=== PATIENT | male | born 1990 | race Caucasian/White ===

== ENCOUNTER 2016-05-02 03:53 | Emergency (ER) | payer BC ==
--- NOTE | 2016-05-02 04:56 | EDPHY ---
H & P Stated Complaint: right ankle injury Time Seen by Provider: 05/02/16 04:27 HPI/ROS: Chief complaint: Left foot and ankle pain HPI: 25-year-old male with skateboarding yesterday when he got his foot caught when he was inverted. [place] a pulling in the mid foot and ankle. Has been unable to weight bear since secondary to pain. Has not noted significant swelling. Not recall any prior injuries to that ankle. He has had vein grafting from that site for reconstruction of his right wrist. No numbness or tingling. Is coming in this morning because he is unable to sleep secondary to the pain. Is denying any other injuries at this time. ROS: 10 point Review of Systems is negative except as noted in the HPI. Past medical history: Right wrist vascular reconstruction secondary to skateboarding injury in the past with vein grafting Medications: None Allergies: None Physical exam: General: Awake, alert, no acute distress Right knee: Nontender, full range of motion of pain, right ankle, nontender, some decreased range of motion secondary to the mid foot pain, Right foot: He has tenderness in his central midfoot. There is no swelling. There is no erythema. He has old surgical scars which are well-healed. He has full range of motion of his toes. Sensations intact in all dermatomes. Cap refills less than 2 seconds. He has 2+ DP and PT pulses. Skin: No rash - Personal History Current Tetanus Diphtheria and Acellular Pertussis (TDAP): Unsure - Medical/Surgical History Hx Asthma: No Hx Chronic Respiratory Disease: No Hx Diabetes: No Hx Cardiac Disease: No Hx Renal Disease: No Hx Cirrhosis: No Hx Alcoholism: No Hx HIV/AIDS: No Hx Splenectomy or Spleen Trauma: No - Social History Smoking Status: Never smoked Constitutional: Initial Vital Signs Temperature (C) 36.5 C 05/02/16 03:58 Heart Rate 100 05/02/16 03:58 Respiratory Rate 20 05/02/16 03:58 Blood Pressure 157/103 H 05/02/16 03:58 O2 Sat (%) 95 05/02/16 03:58 O2 Delivery Mode Room Air Allergies/Adverse Reactions: No Known Allergies Allergy (Unverified 05/02/16 03:57) Home Medications: Medication Instructions Recorded NK [No Known Home Meds] 05/02/16 Medical Decision Making - Diagnostics Imaging: Right ankle x-ray: Negative for acute bony injury, old surgical clips are seen per my interpretation Right foot x-ray: Negative for acute bony injury, old surgical clips are seen per my interpretation ED Course/Re-evaluation: Patient with foot sprain status post skateboarding accident yesterday. There are no obvious fractures on his x-ray. Will place an orthopedic shoe and crutches. Sent home with some Vicodin for pain, taking ibuprofen and acetaminophen otherwise as needed. Will refer to follow up with Orthopedics in about a week if symptoms are not improving. Departure - Departure Disposition: Home, Routine, Self-Care Clinical Impression: Foot sprain Condition: Good Instructions: Foot Sprain (ED) Additional Instructions: Weight-bearing only as tolerated. Alternate ibuprofen and acetaminophen as needed for pain. You may take [place] for breakthrough pain. Apply ice for 15 minutes of every hour while awake. Follow up with Orthopedics, Dr. Taveras, in about a week if symptoms are not improving. Referrals: Estrella Taveras MD [Medical Doctor] - As per Instructions
[2016-05-02] MEDS ORDERED: HYDROCOD/APAP 5/325 PREPACK#6 BTL TAKEHOME ONE (04:58)
[2016-05-02 05:15] VITALS: BP 143/81; PULSE 91; RESP 16; TEMP 97.9; O2SAT 98
== END 2016-05-02 05:14 | disposition home or self-care (01) ==
DX: S93.602A Unspecified sprain of left foot, initial encounter (principal); V00.138A Other skateboard accident, initial encounter; Y92.39 Other specified sports and athletic area as the place of occurrence of the external cause; Y93.51 Activity, roller skating (inline) and skateboarding
CPT/HCPCS: L3260